=== PATIENT | male | born 1995 | race Caucasian/White ===

== ENCOUNTER 2019-08-27 22:11 | Emergency (ER) | payer BC ==
[2019-08-27 22:23] VITALS: PULSE 85
--- NOTE | 2019-08-27 22:43 | EDM.PDOC ---
ED HPI GENERAL MEDICAL PROBLEM - General Chief Complaint: Upper Extremity Injury/Pain Stated Complaint: Left arm pain Time Seen by Provider: 08/27/19 22:33 Source of Information: Reports: Patient History Limitations: Reports: No Limitations - History of Present Illness INITIAL COMMENTS - FREE TEXT/NARRATIVE: Patient comes in to be evaluated for left arm injury. Had part of [employer] roll on forearm 08/23. Pain has gotten gradually worse in forearm area. Notes that using fingers is main aggravator of pain. Pain will extend down towards hand when he moves wrist/fingers. Has tried ice to help with swelling. Denies other injuries. Did not hit head. 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 [No Known Home Meds] 08/27/19 [History] Past Medical History - Past Surgical History Head Surgeries/Procedures: Reports: Other (See Below) HEENT Surgical History: Reports: Oral Surgery Social & Family History - Tobacco Use Smoking Status *Q: Never Smoker - Caffeine Use Caffeine Use: Reports: Soda - Alcohol Use Alcohol Use History: Yes Alcohol Use Frequency: Weekly - Recreational Drug Use Recreational Drug Use: No Drug Use in Last 12 Months: No Review of Systems - Review of Systems Review Of Systems: See Below Constitutional: Reports: No Symptoms Eyes: Reports: No Symptoms Ears: Reports: No Symptoms Nose: Reports: No Symptoms Mouth/Throat: Reports: No Symptoms Respiratory: Reports: No Symptoms Cardiovascular: Reports: No Symptoms GI/Abdominal: Reports: No Symptoms Genitourinary: Reports: No Symptoms Musculoskeletal: Reports: Arm Pain, Hand Pain, Muscle Pain, Muscle Stiffness. Denies: Neck Pain, Shoulder Pain, Back Pain, Leg Pain, Foot Pain Skin: Reports: Erythema. Denies: Wound Neurological: Reports: No Symptoms. Denies: Numbness, Paresthesia, Tingling, Weakness Psychiatric: Reports: No Symptoms ED EXAM, GENERAL - Physical Exam Exam: See Below Exam Limited By: No Limitations General Appearance: Alert, WD/WN, No Apparent Distress Eye Exam: Bilateral Eye: EOMI, PERRL Ears: Normal External Exam Nose: No: Nasal Deformity, Nasal Swelling, Nasal Drainage Throat/Mouth: Normal Lips, Normal Voice, No Airway Compromise Head: Atraumatic, Normocephalic Neck: Supple Respiratory/Chest: No Respiratory Distress Cardiovascular: Normal Peripheral Pulses, Regular Rate, Rhythm Peripheral Pulses: 2+: Radial (L), Radial (R) (Male) Exam: Deferred Rectal (Males) Exam: Deferred Extremities: Other (Significant bruising noted left forearm medially starting at elbow crease and extending down towards wrist. Skin intact. Can move wrist and fingers well on affected L side. Tender over bruised areas. No focal tenderness noted over elbow/wrist/fingers. Pain is exacerbated when he moves hand and is noted to affect the soft tissue where bruising is noted and medial extensor tendons. ). No: Increased Warmth, Mottled, Pallor Neurological: Alert, Oriented, Normal Cognition, Normal Gait, No Motor/Sensory Deficits Psychiatric: Normal Affect, Normal Mood Skin Exam: Warm, Dry, Intact, Ecchymosis Course - Vital Signs Last Recorded V/S: Last Vital Signs Temp 36.7 C 08/27/19 22:22 Pulse 85 08/27/19 22:22 Resp 12 08/27/19 22:22 BP 141/87 H 08/27/19 22:22 Pulse Ox 100 08/27/19 22:22 - Orders/Labs/Meds Orders: Active Orders 24 hr Category Date Time Status Forearm 2V Lt [CR] Stat Exams 08/27/19 22:19 Ordered Hand 2V Lt [CR] Stat Exams 08/27/19 22:34 Taken - Re-Assessments/Exams Free Text/Narrative Re-Assessment/Exam: 08/27/19 23:05 Xrays taken to evaluate left elbow/forearm/wrist/hand. No noted fractures. Suspect crush injury/soft tissue damage to forearm is main injury. No evidence of compartment syndrome. Patient placed in prefab wrist splint by nurse to help with comfort. Precautions reviewed. Pain management reviewed. 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 To follow up as needed if pain does not improve or if symptoms worsen. Departure - Departure Time of Disposition: 22:50 Disposition: Home, Self-Care 01 Condition: Good Clinical Impression: Contusion of left lower arm Qualifiers: Encounter type: initial encounter Qualified Code(s): S50.12XA - Contusion of left forearm, initial encounter - Discharge Information *PRESCRIPTION DRUG MONITORING PROGRAM REVIEWED*: Not Applicable *COPY OF PRESCRIPTION DRUG MONITORING REPORT IN PATIENT FIDENCIO: Not Applicable Instructions: Contusion, [id number] Referrals: Dasia Rascon NP [Primary Care Provider] - Forms: ED Department Discharge Additional Instructions: Wear splint for comfort. Gentle range of motion exercises. Follow up in ER if you have any signs of compartment syndrome as reviewed in ER, however you are already past the first 24 hours of injury and have not had any issue as of yet--this is a good sign. Tylenol/Ibuprofen or Aleve/CBD salve and/or oil to help with pain. Ice prn. Avoid lifting/fine manipulation using left arm and hand for the next 4-5 days. Follow up otherwise as needed if you have problems. Have your blood pressure rechecked several times over the next 4 weeks. If it is consistently above 120/80 then you will need to take action via diet/lifestyle changes to try to get it reduced. Follow up with primary care provider if it appears to continue to run higher Sepsis Event Note (ED) - Evaluation Sepsis Screening Result: No Definite Risk - Focused Exam Vital Signs: Vital Signs Temp Pulse Resp BP Pulse Ox 08/27/19 22:22 36.7 C 85 12 141/87 H 100 - My Orders Last 24 Hours: My Active Orders 08/27/19 22:19 Forearm 2V Lt [CR] Stat 08/27/19 22:34 Hand 2V Lt [CR] Stat - Assessment/Plan Last 24 Hours: My Active Orders 08/27/19 22:19 Forearm 2V Lt [CR] Stat 08/27/19 22:34 Hand 2V Lt [CR] Stat
[2019-08-27 23:08] VITALS: BP 135/85
== END 2019-08-27 23:00 | disposition home or self-care (01) ==
LOC: LL.ED 22:11
DX: S50.12XA Contusion of left forearm, initial encounter (principal); V86.59XA Driver of other special all-terrain or other off-road motor vehicle injured in nontraffic accident, initial encounter
CPT/HCPCS: 73090-LT; 73120-LT; 99283-25